=== PATIENT | female | born 2000 | race Caucasian/White ===

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

== ENCOUNTER 2020-03-27 22:32 | Emergency (ER) | payer BC ==
[2020-03-27 22:37] VITALS: BP 130/86; PULSE 76; RESP 16; TEMP 98
[2020-03-27] MEDS ORDERED: IBUPROFEN 600 MG TAB PO STA (22:49)
--- NOTE | 2020-03-27 22:49 | ED ---
General Adult HPI - General Chief complaint: Extremity Problem,Nontraumatic Stated complaint: Ring stuck on finger Time Seen by Provider: 03/27/20 22:39 Source: patient Mode of arrival: ambulatory Limitations: no limitations - History of Present Illness Initial comments: 19-year-old female patient presents to the emergency department today for evaluation of a ring stuck on her right ring finger. Patient states that she woke from a nap a couple of hours ago and her hands were swollen she is unable to get her ring off. Patient states that she has been trying for 2 hours to get the ring off which is made the finger more swollen. States that the finger is painful now. Denies any injury to the finger otherwise. Denies any other symptoms or concerns. - Related Data Home Medications Medication Instructions Recorded Confirmed No Known Home Medications 03/07/14 03/07/14 Allergies Allergy/AdvReac Type Severity Reaction Status Date / Time No Known Allergies Allergy Verified 03/27/20 22:38 Review of Systems ROS Statement: Those systems with pertinent positive or pertinent negative responses have been documented in the HPI. ROS Other: All systems not noted in ROS Statement are negative. Past Medical History Past Medical History: No Reported History History of Any Multi-Drug Resistant Organisms: None Reported Past Surgical History: No Surgical Hx Reported Past Psychological History: No Psychological Hx Reported Smoking Status: Never smoker Past Alcohol Use History: None Reported Past Drug Use History: None Reported General Exam Limitations: no limitations General appearance: alert, in no apparent distress, other (This is a well- developed, well-nourished adult female patient in no acute distress. Vital signs upon presentation are temperature 98.0F, pulse 76, respiration 16, blood pressure 130/86, pulse ox 100% on room air.) Respiratory exam: Present: normal lung sounds bilaterally. Absent: respiratory distress, wheezes, rales, rhonchi, stridor Cardiovascular Exam: Present: regular rate, normal rhythm, normal heart sounds. Absent: systolic murmur, diastolic murmur, rubs, gallop, clicks Extremities exam: Present: full ROM, normal capillary refill, other (There is mild soft tissue swelling noted to the right ring finger, mild erythema. Skin is otherwise pink, warm, dry. Cap refills less than 3 seconds. Radial pulses 2+.). Absent: normal inspection, tenderness, pedal edema, joint swelling, calf tenderness Neurological exam: Present: alert, oriented X3, CN II-XII intact Psychiatric exam: Present: normal affect, normal mood Skin exam: Present: warm, dry, intact, normal color. Absent: rash Course Vital Signs 03/27/20 22:34 Temperature 98 F Pulse Rate 76 Respiratory 16 Rate Blood Pressure 130/86 O2 Sat by Pulse 100 Oximetry Medical Decision Making - Medical Decision Making 19-year-old female patient presents to the emergency department today for evaluation of a ring stuck on the right ring finger. Physical examination did reveal mild soft tissue swelling and erythema to the finger. Neurovascular status is intact. Was able to remove the ring utilizing the string technique. Patient tolerated this well. No damage was done to the ring. We did give a dose of ibuprofen and applied ice. She is discharged to follow up with her pcp for recheck in 1-2 days. Return parameters are discussed in detail. She verbalizes understanding and agrees with this plan. Disposition Clinical Impression: Finger swelling Disposition: HOME SELF-CARE Condition: Good Instructions (If sedation given, give patient instructions): Edema (ED) Additional Instructions: Ice the finger. Rest. Follow up with the primary care physician for recheck in 1-2 days. Return to the emergency department for any new, worsening, or concerning symptoms. Is patient prescribed a controlled substance at d/c from ED?: No Referrals: Anish Vázquez DO [Primary Care Provider] - 1-2 days Time of Disposition: 22:49
== END 2020-03-27 22:57 | disposition home or self-care (01) ==
LOC: EC 22:32
DX: M79.89 Other specified soft tissue disorders (principal)
CPT/HCPCS: 99283

== ENCOUNTER → 2022-12-01 | Outpatient (CLI) | payer BC ==
--- NOTE | 2022-12-01 17:18 | CA ---
Transthoracic Echo Report Name: Francisca Bowers Age: 22 Gender: F : 2000 Exam Date: 12/01/2022 15:07 Exam Location: [place] Echo Ht (in): 64 Wt (lb): 125 Ordering Physician: Anish Vázquez DO Attending/Referring Phys: Anish Vázquez DO Naval Architect Katja Bocanegra [facility] Procedure CPT: Indications: R00.0 Cardiac Hx: Technical Quality: Fair Contrast 1: Total Dose (mL): Contrast 2: Total Dose (mL): MEASUREMENTS (Male / Female) Normal Values 2D ECHO LV Diastolic Diameter PLAX 4.3 cm 4.2 - 5.9 / 3.9 - 5.3 cm LV Systolic Diameter PLAX 2.5 cm IVS Diastolic Thickness 0.6 cm 0.6 - 1.0 / 0.6 - 0.9 cm LVPW Diastolic Thickness 0.7 cm 0.6 - 1.0 / 0.6 - 0.9 cm LV Relative Wall Thickness 0.3 M-MODE Aortic Root Diameter MM 2.3 cm LA Systolic Diameter MM 1.9 cm LA Ao Ratio MM 0.8 AV Cusp Separation MM 1.8 cm DOPPLER AV Peak Velocity 142.3 cm/s AV Peak Gradient 8.1 mmHg AV Mean Velocity 94.8 cm/s AV Mean Gradient 4.1 mmHg AV Velocity Time Integral 24.6 cm LVOT Peak Velocity 116.1 cm/s LVOT Peak Gradient 5.4 mmHg LVOT Velocity Time Integral 22.8 cm Mitral E Point Velocity 92.3 cm/s Mitral A Point Velocity 52.9 cm/s Mitral E to A Ratio 1.7 MV Deceleration Time 209.1 ms LV E' Lateral Velocity 18.8 cm/s Mitral E to LV E' Lateral Ratio 4.9 LV E' Septal Velocity 18.8 cm/s Mitral E to LV E' Septal Ratio 4.9 TR Peak Velocity 227.1 cm/s TR Peak Gradient 20.6 mmHg Right Atrial Pressure 3.0 mmHg Pulmonary Artery Systolic Pressu 23.6 mmHg Right Ventricular Systolic Press 25.6 mmHg FINDINGS Left Ventricle Normal left ventricular size, wall thickness, systolic function with no obvious regional wall motion abnormalities. Normal left ventricular diastolic filling pattern for age. The ejection fraction is visually estimated at 55-60%. Right Ventricle Mild right ventricular dilatation. Right Atrium The right atrium is normal in size. Left Atrium The left atrium is normal in size. Mitral Valve Structurally normal mitral valve without significant stenosis or prolapse. Trace mitral regurgitation. Aortic Valve Structurally normal aortic valve without significant sclerosis or stenosis. There is no aortic regurgitation. Tricuspid Valve Structurally normal tricuspid valve without significant stenosis. Trace tricuspid regurgitation. Pulmonic Valve Structurally normal pulmonic valve without significant stenosis. There is no pulmonic regurgitation. Pericardium Normal pericardium without effusion. Aorta Normal aortic root dimension. CONCLUSIONS Normal LV function Previewed by: Miles Alvarez MD Dr. Suresh Tumma MD (Electronically Signed) Final Date: 01 December 2022 17:17
== END | disposition home or self-care (01) ==
LOC: RADECHMAIN 14:56
PROVIDERS: ATTEND Family Medicine
DX: R00.0 Tachycardia, unspecified (principal)
CPT/HCPCS: 93306

== ENCOUNTER → 2023-02-10 | Outpatient (CLI) | payer BC ==
--- NOTE | 2023-02-10 16:07 | USB ---
Reason for Exam: Clinical finding. Technique: Method: Targeted. Findings: The lateral section of the breast of the right breast, the area of palpable concern of the right breast, the axilla of the right breast and the retroareolar of the right breast were scanned. No solid or cystic masses are identified.. Manage clinically. Overall Assessment: Negative, BI-RAD 1 Management: Screening Mammogram of both breasts in 1 year. A clinical breast exam by your physician is recommended on an annual basis and results should be correlated with mammographic findings. This exam should not preclude additional follow-up of suspicious palpable abnormalities. Results were given to the patient verbally at the time of exam. Electronically signed and approved by: Daniel Patel M.D. Radiologis
== END | disposition home or self-care (01) ==
LOC: RADUSWWP 14:38
PROVIDERS: ATTEND Obstetrics & Gynecology Obstetrics
DX: N64.4 Mastodynia (principal); N63.10 Unspecified lump in the right breast, unspecified quadrant

== ENCOUNTER 2023-07-22 20:04 | Emergency (ER) | payer BC ==
--- NOTE | 2023-07-22 20:10 | ED ---
Chest Pain HPI - General Source: patient, RN notes reviewed <Lulu Wilson - Last Filed: 07/22/23 20:09> <João Payne - Last Filed: 07/23/23 01:46> - General Stated Complaint: HIGH BMP Time Seen by Provider: 07/22/23 20:09 - History of Present Illness Initial Comments: Patient is a 22-year-old female presented ER with chief complaint tachycardia. She states all day her heart rate has been in the 120s to 160s. She also is endorsing some chest pain. Patient denies any history of blood clots. She doesn't gape and is currently on control. (Lulu Wilson) 22-year-old female presenting to the ED with a chief complaint of palpitations. Patient states that this has been ongoing for over a year now. Patient reports that she is already gone through a trial where she wore a monitor and also had an echo which she reports were unremarkable. Today, states episode of palpitations lasted longer than usual prompting presentation to the ED for further evaluation. Does also note chest pain with this as well. No shortness of breath. No fever or chills. No other complaints at this time. (João Payne) - Related Data Home Medications Medication Instructions Recorded Confirmed No Known Home Medications 03/07/14 03/07/14 Allergies Allergy/AdvReac Type Severity Reaction Status Date / Time amoxicillin [From Augmentin] AdvReac Unknown Verified 07/22/23 20:40 Childhood clavulanic acid AdvReac Unknown Verified 07/22/23 20:40 [From Augmentin] Childhood Review of Systems ROS Other: All systems not noted in ROS Statement are negative. <Lulu Wilson - Last Filed: 07/22/23 20:09> ROS Other: All systems not noted in ROS Statement are negative. <João Payne - Last Filed: 07/23/23 01:46> ROS Statement: Those systems with pertinent positive or pertinent negative responses have been documented in the HPI. Past Medical History Past Medical History: No Reported History History of Any Multi-Drug Resistant Organisms: None Reported Past Surgical History: No Surgical Hx Reported Past Psychological History: No Psychological Hx Reported Smoking Status: Never smoker Past Alcohol Use History: None Reported Past Drug Use History: None Reported <Lulu Wilson - Last Filed: 07/22/23 20:09> General Exam <Lulu Wilson - Last Filed: 07/22/23 20:09> General appearance: alert, in no apparent distress Eye exam: Present: normal appearance Neck exam: Present: normal inspection Respiratory exam: Present: normal lung sounds bilaterally Cardiovascular Exam: Present: regular rate, normal rhythm GI/Abdominal exam: Present: soft Neurological exam: Present: alert, oriented X3 Skin exam: Present: warm, dry <João Payne - Last Filed: 07/23/23 01:46> - General Exam Comments Initial Comments: Visual Physical Exam Vital signs reviewed General: Well-appearing, nontoxic, no acute distress. Head: Normocephalic, atraumatic Eyes: PERRLA, EOMI ENT: Airway patent Chest: Nonlabored breathing Skin: No visual rash, normal skin tone Neuro: Alert and oriented 3 Musculoskeletal: No gross abnormalities (Lulu Wilson) Course Vital Signs 07/22/23 07/22/23 07/23/23 20:37 23:51 01:18 Temperature 98 F 98.3 F 98.1 F Pulse Rate 125 H 87 84 Respiratory 18 16 16 Rate Blood Pressure 142/78 109/76 103/71 O2 Sat by Pulse 98 100 100 Oximetry Chest Pain MDM <Lulu Wilson - Last Filed: 07/22/23 20:09> <João Payne - Last Filed: 07/23/23 01:46> - MDM I performed the quick note portion of the exam. Electronically signed by Lulu Wilson PA-C (Lulu Wilson) Was pt. sent in by a medical professional or institution (ALEXIS Freitas, DAIRY CLERK, urgent care, hospital, or group home...) When possible be specific @ -No Did you speak to anyone other than the patient for history (EMS, parent, family, police, friend...)? What history was obtained from this source @ -No Did you review nursing and triage notes (agree or disagree)? Why? @ -I reviewed and agree with nursing and triage notes Were old charts reviewed (outside hosp., previous admission, EMS record, old EKG, old radiological studies, urgent care reports/EKG's, group home records)? Report findings @ -No old charts were reviewed Differential Diagnosis (chest pain, altered mental status, abdominal pain women, abdominal pain men, vaginal bleeding, weakness, fever, dyspnea, syncope, headache, dizziness, GI bleed, back pain, seizure, CVA, palpatations, mental health, musculoskeletal)? @ -Differential Chest Pain: Stable Angina, Unstable Angina, STEMI, NSTEMI Aortic Dissection, Pneumothorax, Musculoskeletal, Esophageal Spasm GERD, Cholecystitis, Pancreatitis, Zoster, this is not meant to be an all-inclusive list. EKG interpreted by me (3pts min.). @ -EKG interpreted by me showing a sinus rhythm at [address] or T wave changes. TN 115, QRS 78, QT/QTc 342/392. X-rays interpreted by me (1pt min.). @ -Chest x-ray inter by me showing no evidence of acute finding. CT interpreted by me (1pt min.). @ -None done U/S interpreted by me (1pt. min.). @ -None done What testing was considered but not performed or refused? (CT, X-rays, U/S, labs)? Why? @ -None What meds were considered but not given or refused? Why? @ -None Did you discuss the management of the patient with other professionals (professionals i.e. , PA, DAIRY CLERK, lab, RT, psych nurse, social studies teacher, first beater, teacher, hospital security officer, correctional case manager)? Give summary @ -No Was smoking cessation discussed for >3mins.? @ -No Was critical care preformed (if so, how long)? @ -No Were there social determinants of health that impacted care today? How? (Homelessness, low income, unemployed, alcoholism, drug addiction, transportation, low edu. Level, literacy, decrease access to med. care, custodial, rehab)? @ -No Was there de-escalation of care discussed even if they declined (Discuss DNR or withdrawal of care, Hospice)? DNR status @ -No What co-morbidities impacted this encounter? (DM, HTN, Smoking, COPD, CAD, Cancer, CVA, ARF, Chemo, Hep., AIDS, mental health diagnosis, sleep apnea, morbid obesity)? @ -None Was patient admitted / discharged? Hospital course, mention meds given and route, prescriptions, significant lab abnormalities, going to OR and other pertinent info. @ -Discharge 22-year-old female presenting to the ED with a chief complaint of palpitations. Has been ongoing for the past year now and she is already had a trial of wearing a monitor and had an echo which were reportedly unremarkable. Presenting again today as episode of palpitations seem to last longer than usual today and patient also noted some chest pain. Laboratory studies including CBC, CMP, D- dimer, troponin x 2, UA, serology panel unremarkable. At this time patient has a heart score of 0 and is at low risk of major adverse cardiac event. Discharged home in stable condition with instructions to follow-up with her PCP. Discussed return precautions with patient who verbalized agreement. Undiagnosed new problem with uncertain prognosis? @ -No Drug Therapy requiring intensive monitoring for toxicity (Heparin, Nitro, Insulin, Cardizem)? @ -No Were any procedures done? @ -No Diagnosis/symptom? @ -Chest pain, palpitations Acute, or Chronic, or Acute on Chronic? @ -Acute Uncomplicated (without systemic symptoms) or Complicated (systemic symptoms)? @ -Uncomplicated Side effects of treatment? @ -No Exacerbation, Progression, or Severe Exacerbation? @ -No Poses a threat to life or bodily function? How? (Chest pain, [place], [place], pneumonia, PE, COPD, DKA, ARF, appy, cholecystitis, CVA, Diverticulitis, Homicidal, Suicidal, threat to staff... and all critical care pts) @ -No (João Payne) Disposition <Lulu Wilson - Last Filed: 07/22/23 20:09> Is patient prescribed a controlled substance at d/c from ED?: No Time of Disposition: 01:46 <João Payne - Last Filed: 07/23/23 01:46> Clinical Impression: Chest pain, Palpitations Disposition: HOME SELF-CARE Condition: Good Instructions (If sedation given, give patient instructions): Heart Palpitations (ED) Additional Instructions: Please return to the Emergency Department if symptoms worsen or any other concerns. Please follow-up with your PCP. Referrals: Anish Vázquez DO [Primary Care Provider] - 1-2 days
[2023-07-22 20:57] LABS: HCT 45.2 % (34.0-46.0); HGB 15.6 gm/dL (11.4-16.0); MCH 31.2 pg (25.0-35.0); MCHC 34.5 g/dL (31.0-37.0); MCV 90.6 fL (80.0-100.0); Mean Platelet Volume 7.2; Platelet Count 243 k/uL (150-450); RBC 4.99 m/uL (3.80-5.40); RDW 12.2 % (11.5-15.5); WBC 8.2 k/uL (3.8-10.6)
[2023-07-22 21:07] LABS: ALT 17 U/L (4-34); AST 18 U/L (14-36); African American GFR (CKD) >90 (>60 ml/min/1.73 sqM); Albumin 4.9 g/dL (3.5-5.0); Alkaline Phosphatase 32 U/L (38-126); Anion Gap 10 mmol/L; Blood Urea Nitrogen 9 mg/dL (7-17); Calcium 9.8 mg/dL (8.4-10.2); Carbon Dioxide 20 mmol/L (22-30); Chloride 108 mmol/L (98-107); Glucose 103 mg/dL (74-99); Non-African American GFR(CKD) >90 (>60 ml/min/1.73 sqM); Potassium 4.1 mmol/L (3.5-5.1); Sodium 138 mmol/L (137-145); Total Bilirubin 0.7 mg/dL (0.2-1.3); Total Protein 8.1 g/dL (6.3-8.2)
[2023-07-22 21:09] LABS: INR 0.9 (<1.2); Partial Thromboplastin Time 23.9 sec (22.0-30.0); Prothrombin Time 10.3 sec (10.0-12.5)
--- NOTE | 2023-07-22 21:28 | XR ---
EXAMINATION TYPE: XR chest 2V DATE OF EXAM: 07/22/2023 9:18 PM CLINICAL INDICATION:Female, 22 years old with history of chest pain; [facility] COMPARISON: None TECHNIQUE: XR chest 2V Frontal and lateral views of the chest. FINDINGS: Lungs/Pleura: There is no evidence of pleural effusion, focal consolidation, or pneumothorax. Pulmonary vascularity: Unremarkable. Heart/mediastinum: Cardiomediastinal silhouette is unremarkable. Musculoskeletal: No acute osseous pathology. IMPRESSION: No acute cardiopulmonary disease/process.
[2023-07-22 23:59] VITALS: RESP 16
[2023-07-23 01:35] VITALS: BP 103/71; PULSE 84; TEMP 98.1
== END 2023-07-23 01:54 | disposition home or self-care (01) ==
LOC: EC 20:04
DX: R00.2 Palpitations (principal); R07.9 Chest pain, unspecified; Z20.822 Contact with and (suspected) exposure to COVID-19; Z88.0 Allergy status to penicillin; Z88.8 Allergy status to other drugs, medicaments and biological substances
CPT/HCPCS: 36415; 71046; 80053; 84443; 84484; 84703; 85027; 85379; 85610; 85730; 87636; 93005; 99285

== ENCOUNTER → 2024-05-18 | Outpatient (CLI) | payer BC ==
--- NOTE | 2024-05-18 14:48 | USB ---
Reason for Exam: Clinical finding. Technique: Method: Targeted. Findings: The lateral section of the breast of the left breast, the axilla of the left breast and the retroareolar of the left breast were scanned. Targeted ultrasound lateral aspect of the left breast 1:00 to 4:00 including scanning of the subareolar region and axilla. There is very dense tissue present throughout. No solid or cystic lesion or axillary adenopathy. Overall Assessment: Benign, BI-RAD 2 Management: Screening Mammogram of both breasts at age 40. Unless there is a clinical indication to start sooner. Also, further clinical management of patient's breast tenderness and clinical lump. A clinical breast exam by your physician is recommended on an annual basis and results should be correlated with mammographic findings. This exam should not preclude additional follow-up of suspicious palpable abnormalities. Results were given to the patient verbally at the time of exam. [facility], , 05/18/2024 2:46 PM. Electronically signed and approved by: Mike Becerra M.D. Radiologist
== END | disposition home or self-care (01) ==
LOC: RADUSWWP 13:41
PROVIDERS: ATTEND Obstetrics & Gynecology Obstetrics
DX: N63.20 Unspecified lump in the left breast, unspecified quadrant (principal); N64.4 Mastodynia